=== PATIENT | male | born 1990 | race Caucasian/White ===

== ENCOUNTER 2021-12-14 08:22 | Emergency (ER) | payer OTHER, BC ==
[~2021-12-14] VITALS: Ht 198.1 cm; Wt 215.5 kg
== END 2021-12-14 10:52 | disposition home or self-care (01) ==
LOC: ER 08:22
DX: S09.90XA Unspecified injury of head, initial encounter (principal); S80.02XA Contusion of left knee, initial encounter; X58.XXXA Exposure to other specified factors, initial encounter; Z23 Encounter for immunization
CPT/HCPCS: 70450; 90714; A9270